=== PATIENT | female | born 1990 | race Asian ===

== ENCOUNTER 2017-04-27 03:37 | Emergency (ER) | payer OTHER ==
[~2017-04-27] VITALS: Ht 68.6 cm; Wt 66.0 kg
[2017-04-27 03:39] VITALS: TEMP 98.3
[2017-04-27 04:17] LABS: BASO # 0.1 (0.0-0.2); BASO % 0.4 % (0.0-2.0); EOS # 0.1 (0.0-0.7); EOS % 1.1 % (0-4.0); GRAN # 8.9 (1.4-6.5); GRAN % 74.1 % (42.2-75.2); LYMPH # 2.5 (1.2-3.4); LYMPH % 20.8 % (20.0-51.0); MEAN CELL VOLUME 93 fl (80.0-100.0); MEAN CORPUSCULAR HGB CONC 33 g/dl (33.0-37.0); MEAN PLATELET VOLUME 9.1 fl (7.4-10.4); MONO # 0.4 (0.1-0.6); MONO % 3.3 % (1.7-9.3); PLATELET COUNT 214 K/mm3 (130-400); RED BLOOD COUNT 3.64 M/mm3 (4.10-5.30); REDCELL DISTRIBUTION WIDTH-CV 12.8 % (11.5-14.5)
[2017-04-27 04:21] LABS: HEMATOCRIT 33.7 % (37.0-47.0); HEMOGLOBIN 11.2 g/dl (12.5-16.0); MEAN CORPUSCULAR HEMOGLOBIN 31 pg (27.0-31.0)
[2017-04-27 04:56] LABS: PH 7 (5-8); SQUAMOUS EPITHELIAL 0-2 /hpf; URINE APPEARANCE Clear; URINE BACTERIA Rare /hpf; URINE BILIRUBIN Negative (NEGATIVE); URINE BLOOD 3+ (NEGATIVE); URINE COLOR Straw; URINE GLUCOSE Negative (NEGATIVE); URINE KETONE Negative (NEGATIVE); URINE UROBILINOGEN Negative (NEGATIVE)
[2017-04-27 04:58] LABS: URINE WBC 0-2 /hpf
[2017-04-27 08:24] VITALS: BP 110/62; PULSE 87
[2017-04-27 08:46] LABS: CHLAMYDIA/TRACH by PCR Female NOT DETECTED; NEISSERIA GON by PCR Female NOT DETECTED
== END 2017-04-27 08:25 | disposition home or self-care (01) ==
LOC: COL.ER 03:37
PROVIDERS: Emergency Medicine
DX: O20.0 Threatened abortion (principal); Z3A.15 15 weeks gestation of pregnancy; Z98.890 Other specified postprocedural states
CPT/HCPCS: J7030

== ENCOUNTER 2017-04-27 22:36 | Emergency (ER) | payer OTHER ==
[~2017-04-27] VITALS: Ht 168 cm; Wt 66.0 kg
[2017-04-27 22:39] VITALS: TEMP 98
[2017-04-28 00:31] VITALS: BP 134/72; PULSE 97
== END 2017-04-28 00:40 | disposition home or self-care (01) ==
LOC: COL.ER 22:36
DX: O20.0 Threatened abortion (principal); Z3A.00 Weeks of gestation of pregnancy not specified

== ENCOUNTER 2017-09-26 07:10 | Inpatient (IN) | payer OTHER ==
[2017-09-26] VITALS (17 sets, daily range): BP systolic 113–143; BP diastolic 65–78; PULSE 63–99; TEMP 98–99.3
[~2017-09-26] VITALS: Ht 167.6 cm; Wt 80.0 kg
[2017-09-26] MEDS ORDERED: PRENATAL MVI ×2 (07:46)
[2017-09-26 07:51] LABS: BASO % 0.3 % (0.0-2.0); EOS # 0.2 (0.0-0.7); EOS % 1.9 % (0-4.0); GRAN # 7.8 (1.4-6.5); GRAN % 74.8 % (42.2-75.2); LYMPH # 1.8 (1.2-3.4); LYMPH % 17.3 % (20.0-51.0); MEAN CELL VOLUME 98 fl (80.0-100.0); MEAN CORPUSCULAR HGB CONC 34 g/dl (33.0-37.0); MEAN PLATELET VOLUME 9.3 fl (7.4-10.4); MONO # 0.5 (0.1-0.6); MONO % 4.8 % (1.7-9.3); PLATELET COUNT 156 K/mm3 (130-400); WHITE BLOOD COUNT 10.4 K/mm3 (4.8-10.8)
[2017-09-26 07:59] LABS: HEMATOCRIT 34.4 % (37.0-47.0); HEMOGLOBIN 11.6 g/dl (12.5-16.0); MEAN CORPUSCULAR HEMOGLOBIN 33 pg (27.0-31.0)
[2017-09-27 03:59] VITALS: BP 121/66; PULSE 96; TEMP 98
[2017-09-27 07:20] LABS: HEMATOCRIT 24.8 % (37.0-47.0); HEMOGLOBIN 8.5 g/dl (12.5-16.0)
[2017-09-27 07:30] VITALS: BP 117/72; PULSE 84; TEMP 97.8; TEMP 98.3
[2017-09-27] MEDS ORDERED: IBU600 MG PO (08:33)
[2017-09-27] MEDS ORDERED: PERCOCET 325 MG1 TA2 PO (08:33)
[2017-09-27] MEDS ORDERED: FERROUS SU325 MG/TAB PO (08:33)
[2017-09-27 17:06] VITALS: BP 119/79; PULSE 100
[2017-09-27 20:00] VITALS: BP 127/69; PULSE 93; TEMP 98.2
[2017-09-28 04:18] VITALS: BP 119/66; PULSE 86; TEMP 98
[2017-09-28 07:20] VITALS: BP 130/78; PULSE 100; TEMP 98.1
[2017-09-28 10:13] LABS: HEMATOCRIT 25.5 % (37.0-47.0); HEMOGLOBIN 8.7 g/dl (12.5-16.0)
== END 2017-09-28 14:55 | disposition home or self-care (01) | DRG 765 ==
LOC: OB 07:10
PROVIDERS: Obstetrics & Gynecology
PROC: 10D00Z1 Extraction of Products of Conception, Low, Open Approach (ICD-10-PCS; principal; 2017-09-26)
PROC: 0DNU0ZZ Release Omentum, Open Approach (ICD-10-PCS; 2017-09-26)
PROC: 0HB7XZZ Excision of Abdomen Skin, External Approach (ICD-10-PCS; 2017-09-26)
DX: O34.29 Maternal care due to uterine scar from other previous surgery (principal); O45.8X3 Other premature separation of placenta, third trimester; N85.8 Other specified noninflammatory disorders of uterus; O99.62 Diseases of the digestive system complicating childbirth; K66.0 Peritoneal adhesions (postprocedural) (postinfection); O99.72 Diseases of the skin and subcutaneous tissue complicating childbirth; L98.8 Other specified disorders of the skin and subcutaneous tissue; Z3A.37 37 weeks gestation of pregnancy; Z37.0 Single live birth
CPT/HCPCS: J0690; J1885; J2270; J2370; J2405; J2590; J2704; J7120